=== PATIENT | female | born 2000 | race Caucasian/White ===

== ENCOUNTER 2025-09-29 12:07 | Emergency (ER) | payer SELFPAY ==
[~2025-09-29] VITALS: Ht 154.9 cm; Wt 78.6 kg
[2025-09-29 12:17] VITALS: BP 124/72; PULSE 85; RESP 16; TEMP 98.1; O2SAT 99
[2025-09-29] MEDS: IBUPROFEN 400 MG TABLET PO ONE (12:51)
[2025-09-29] MEDS: LIDOCAINE 5% TRANSDERMAL PATCH TD ONE (12:51)
[2025-09-29] MEDS: ACETAMINOPHEN 500 MG TABLET PO ONE (12:51)
[2025-09-29] MEDS ORDERED: METH-812 PO (13:50)
== END 2025-09-29 14:16 | disposition home or self-care (01) ==
LOC: EMS 12:07
DX: M62.838 Other muscle spasm (principal); Z90.49 Acquired absence of other specified parts of digestive tract
CPT/HCPCS: 99284; Z7502; Z7610